=== PATIENT | male | born 1930 | race Caucasian/White ===

== ENCOUNTER 2016-03-04 07:44 | Day surgery (SDC) | payer OTHER ==
[~2016-03-04] VITALS: Ht 170.2 cm; Wt 82.5 kg
[~2016-03-04 07:44] MED LIST: ADULT LOW DOSE81 M1 PO; AMITRIPTYLINE H25 MG PO; ATORVASTATIN CA10 MG PO; ATORVASTATIN CA40 MG PO; CALCIUM 600 +1 EAC3 PO; CALCIUM 600 +1 EAC5 PO; ELAVIL25 MG PO; FENOFIBRATE145 M1 PO; GLIPIZIDE5 MG PO; ISOSORBIDE DINI30 MG PO; ISOSORBIDE MONO60 MG PO; LANTUS 3 M100 UNITS1 SC; Lopressor PO; METOPROLOL SUCC50 MG PO; MULTIVITAMIN1 EAC2 PO; NAPROSYN500 MG PO; NITROSTAT0.4 MG SL; NOVOLOG PE100 UNITS/ SC; NOVOLOG100 UNIT/1 SC; PANTOPRAZOLE SO40 MG PO; PLAVIX75 MG PO; VICTOZA 2-0.6 MG/0.1 SC
[2016-03-04 09:23] LABS: POINT-OF-CARE METER ID UU13113696
[2016-03-04 16:05] VITALS: BP 167/74
[2016-03-04 16:48] LABS: POINT-OF-CARE USER ID ENVKC36
[2016-03-04 19:35] VITALS: BP 123/70
[2016-03-04 23:10] VITALS: BP 149/65
[2016-03-05 04:45] VITALS: BP 157/70
[2016-03-05 07:15] LABS: ANION GAP 7 MEQ/L (2-14); CHLORIDE 104 MEQ/L (99-109); GFR ESTIMATE (CALCULATED) 56 mL/min/; GLUCOSE 70 mg/dL (70-99); POTASSIUM 4.3 MEQ/L (3.7-5.4); SAMPLE HEMOLYSIS CHECK 0; SAMPLE ICTERIC CHECK 0; SAMPLE LIPEMIA CHECK 0; SODIUM 137 MEQ/L (136-147); UREA NITROGEN (BUN) 12 mg/dL (9-23)
[2016-03-05 07:45] VITALS: BP 152/71
[2016-03-05 07:45] LABS: POINT-OF-CARE USER ID ENVKC36
[2016-03-05 07:49] LABS: EOSINOPHIL (%) 3.7 % (0-5); EOSINOPHIL COUNT 0.3 K/uL (0-0.3); HEMATOCRIT 41.6 % (38.0-50.0); IMMATURE GRANULOCYTE (%) 0.2 % (0.0-0.7); LYMPHOCYTE COUNT 1.3 K/uL (1.0-2.8); MCHC 33.7 G/DL (30.0-36.0); MCV 89.1 FL (86-99); MEAN PLAT.VOLUME 12.5 uM^3 (9.0-12.4); MONOCYTE (%) 7.7 % (3-12); MONOCYTE COUNT 0.6 K/uL (0-0.8); NEUTROPHIL (%) 72.5 % (45-76); NEUTROPHIL COUNT 5.8 K/uL (1.8-6.4); PLATELET COUNT 168 K/uL (156-360); RBC DIS.WIDTH-CV 14.4 % (11.8-14.6); RBC DIS.WIDTH-SD 46.7 % (39-53); RED BLOOD COUNT 4.67 M/uL (4.00-5.50)
[2016-03-05 07:50] LABS: WHITE BLOOD COUNT 8.1 K/uL (4.1-10.2)
== END 2016-03-05 12:01 | disposition home or self-care (01) ==
LOC: CATH 07:44 → 4EAST 13:05 → 2SOUTH 13:05 → 4EAST 15:57
PROVIDERS: Internal Medicine Cardiovascular Disease
DX: I25.10 Atherosclerotic heart disease of native coronary artery without angina pectoris (principal); R07.9 Chest pain, unspecified; I10 Essential (primary) hypertension; E78.5 Hyperlipidemia, unspecified; E11.9 Type 2 diabetes mellitus without complications; Z95.5 Presence of coronary angioplasty implant and graft
CPT/HCPCS: 80048; 82948; 85025; 85347; 93005; C1725; C1769; C1874; C1887; G0378; J0583; J1644; J1815; J2250; J3010; J7050

== ENCOUNTER 2016-08-10 13:53 | Emergency (ER) | payer OTHER ==
[~2016-08-10] VITALS: Ht 170.2 cm; Wt 83.6 kg
[2016-08-10 16:27] LABS: HEMATOCRIT 41.2 % (38.0-50.0); MCH 30.1 PG (29.0-34.0); MCV 91.2 FL (86-99); MEAN PLAT.VOLUME 11.9 uM^3 (9.0-12.4); PLATELET COUNT 185 K/uL (156-360); RBC DIS.WIDTH-CV 14.5 % (11.8-14.6); RBC DIS.WIDTH-SD 48.2 % (39-53); RED BLOOD COUNT 4.52 M/uL (4.00-5.50); WHITE BLOOD COUNT 7.7 K/uL (4.1-10.2)
[2016-08-10 16:38] LABS: CHLORIDE 105 mEq/L (99-109); POTASSIUM 4.3 mEq/L (3.7-5.4); SODIUM 139 mEq/L (136-147)
[2016-08-10 16:40] LABS: GLUCOSE 242 mg/dL (70-99)
[2016-08-10 16:42] LABS: ANION GAP 10 MEQ/L (2-14)
[2016-08-10 16:44] LABS: GFR ESTIMATE (CALCULATED) 44 mL/min/
[2016-08-10 16:45] LABS: UREA NITROGEN (BUN) 18 mg/dL (9-23)
[2016-08-10 19:43] VITALS: BP 167/79
== END 2016-08-10 19:45 | disposition home or self-care (01) ==
LOC: EME 13:53
PROVIDERS: Emergency Medicine
DX: S20.211A Contusion of right front wall of thorax, initial encounter (principal); X50.0XXA Overexertion from strenuous movement or load, initial encounter; R07.89 Other chest pain; I48.91 Unspecified atrial fibrillation; I10 Essential (primary) hypertension; I25.10 Atherosclerotic heart disease of native coronary artery without angina pectoris; Z95.5 Presence of coronary angioplasty implant and graft; E11.9 Type 2 diabetes mellitus without complications; Z79.4 Long term (current) use of insulin; E78.5 Hyperlipidemia, unspecified; K21.9 Gastro-esophageal reflux disease without esophagitis; Z79.02 Long term (current) use of antithrombotics/antiplatelets; Z79.82 Long term (current) use of aspirin
CPT/HCPCS: 71020; 80048; 85027; 93005; 99281; 99285; J1885

== ENCOUNTER 2016-08-14 16:32 | Emergency (ER) | payer OTHER ==
[~2016-08-14] VITALS: Ht 167.6 cm; Wt 83.6 kg
[2016-08-14 17:11] LABS: HEMATOCRIT 41.2 % (38.0-50.0); MCH 29.7 PG (29.0-34.0); MCHC 32.8 G/DL (30.0-36.0); MCV 90.7 FL (86-99); MEAN PLAT.VOLUME 11.3 uM^3 (9.0-12.4); PLATELET COUNT 193 K/uL (156-360); RBC DIS.WIDTH-CV 14.2 % (11.8-14.6); RBC DIS.WIDTH-SD 47.8 % (39-53); RED BLOOD COUNT 4.54 M/uL (4.00-5.50); WHITE BLOOD COUNT 6.5 K/uL (4.1-10.2)
[2016-08-14] MEDS ORDERED: ISOSORBIDE DINIT5 MG PO (17:25)
[2016-08-14] MEDS ORDERED: METOPROLOL TART50 MG PO (17:26)
[2016-08-14] MEDS ORDERED: LANTUS 10100 UNITS/ SC (17:26)
[2016-08-14 17:44] LABS: CHLORIDE 107 mEq/L (99-109); POTASSIUM 4.4 mEq/L (3.7-5.4); SODIUM 143 mEq/L (136-147)
[2016-08-14 17:46] LABS: GLUCOSE 141 mg/dL (70-99)
[2016-08-14 17:47] LABS: ANION GAP 10 MEQ/L (2-14)
[2016-08-14 17:48] LABS: TOTAL BILIRUBIN 0.7 mg/dL (0.0-1.0)
[2016-08-14 17:50] LABS: ALKALINE PHOSPHATASE 35 IU/L (3-129); GFR ESTIMATE (CALCULATED) 47 mL/min/
[2016-08-14 17:51] LABS: UREA NITROGEN (BUN) 21 mg/dL (9-23)
[2016-08-14 18:54] LABS: TROP-I INTERPRETATION NEGATIVE; TROPONIN-I < 0.01 ng/mL (0.0-0.30)
[2016-08-14 20:25] LABS: ADD MIUA? NO; BILIRUBIN NEGATIVE; BLOOD NEGATIVE; COLOR YELLOW ((YELLOW)); GLUCOSE (STRIP) 50; KETONES NEGATIVE; LEUKOCYTES NEGATIVE; NITRITE NEGATIVE; PROTEIN (STRIP) NEGATIVE; UCUL ADDED? NO
[2016-08-14] MEDS ORDERED: ZOFRAN ODT4 MG PO (20:45)
[2016-08-14 21:50] VITALS: BP 136/74
== END 2016-08-14 21:50 | disposition home or self-care (01) ==
LOC: EME 16:32
PROC: 0T9B70Z Drainage of Bladder with Drainage Device, Via Natural or Artificial Opening (ICD-10-PCS; principal; 2016-08-14)
DX: R11.2 Nausea with vomiting, unspecified (principal); R42 Dizziness and giddiness; R51 Headache; R33.9 Retention of urine, unspecified; R07.89 Other chest pain; E78.5 Hyperlipidemia, unspecified; E11.9 Type 2 diabetes mellitus without complications; Z79.4 Long term (current) use of insulin; I44.0 Atrioventricular block, first degree; I48.91 Unspecified atrial fibrillation; K21.9 Gastro-esophageal reflux disease without esophagitis; I10 Essential (primary) hypertension; Z95.5 Presence of coronary angioplasty implant and graft; Z79.02 Long term (current) use of antithrombotics/antiplatelets; Z79.82 Long term (current) use of aspirin
CPT/HCPCS: 70450; 71260; 74177; 80053; 81003; 84484; 85027; 93005; 99281; 99285; J2405; J7030

== ENCOUNTER 2017-05-04 17:47 | Inpatient (IN) | payer OTHER ==
[~2017-05-04] VITALS: Ht 172.7 cm; Wt 83.5 kg
[~2017-05-04 17:47] MED LIST changes: +IMDUR60 MG PO; +LANTUS 10100 UNITS/ SC; +TOPROL XL50 MG PO; +ZOFRAN ODT4 MG PO
[2017-05-04 19:06] LABS: BASOPHIL (%) 0.3 % (0-1); EOSINOPHIL (%) 0.2 % (0-5); HEMOGLOBIN 13.2 G/DL (12.5-16.6); IMMATURE GRANULOCYTE (%) 0.5 % (0.0-0.7); LYMPHOCYTE (%) 2.8 % (15-42); LYMPHOCYTE COUNT 0.3 K/uL (1.0-2.8); MCHC 33.8 G/DL (30.0-36.0); MCV 88.6 FL (86-99); MONOCYTE (%) 2.9 % (3-12); MONOCYTE COUNT 0.4 K/uL (0-0.8); NEUTROPHIL (%) 93.3 % (45-76); NEUTROPHIL COUNT 11.4 K/uL (1.8-6.4); PLATELET COUNT 151 K/uL (156-360); RBC DIS.WIDTH-SD 45.2 % (39-53); WHITE BLOOD COUNT 12.2 K/uL (4.1-10.2)
[2017-05-04 19:16] LABS: ALBUMIN 4.3 g/dL (3.2-4.8); CHLORIDE 106 mEq/L (99-109); POTASSIUM 3.8 mEq/L (3.7-5.4); SODIUM 140 mEq/L (136-147)
[2017-05-04 19:18] LABS: GLUCOSE 116 mg/dL (70-99); TOTAL PROTEIN 6.7 g/dL (6.4-8.3)
[2017-05-04 19:22] LABS: ALKALINE PHOSPHATASE 43 IU/L (3-129); CREATININE 1.5 mg/dL (0.6-1.3); GFR ESTIMATE (CALCULATED) 47 mL/min/ (58.99-99999)
[2017-05-04 19:23] LABS: UREA NITROGEN (BUN) 17 mg/dL (9-23)
[2017-05-04 19:24] LABS: AST (GOT) 27 IU/L (2-34)
[2017-05-04 19:25] LABS: ALT (GPT) 22 IU/L (3-49); LIPASE 24 U/L (1.0-51.0)
[2017-05-04 19:26] LABS: TROP-I INTERPRETATION NEGATIVE; TROPONIN-I 0.06 ng/mL (0.0-0.30)
[2017-05-04 19:33] LABS: APPEARANCE CLEAR ((CLEAR)); BILIRUBIN NEGATIVE; BLOOD SMALL; COLOR YELLOW ((YELLOW)); GLUCOSE (STRIP) 50; KETONES NEGATIVE; LEUKOCYTES NEGATIVE; NITRITE NEGATIVE; PROTEIN (STRIP) NEGATIVE; SPECIFIC GRAVITY 1.013 (1.000-1.030); UROBILINOGEN 0.2 MG/DL (0.2-1.0)
[2017-05-04 19:37] LABS: BACTERIA NONE SEEN /HPF; EPITHELIAL CELLS NONE SEEN /HPF; HYALINE CASTS 0-5 /LPF; MUCUS TRACE /LPF; RED BLOOD CELLS 0-5 /HPF (0-5); UCUL ADDED? NO; WHITE BLOOD CELLS 0-5 /HPF (0-5)
[2017-05-04 20:50] LABS: INTER. NORMALIZED RATIO 1.3
[2017-05-04 21:06] LABS: TROP-I INTERPRETATION NEGATIVE; TROPONIN-I 0.08 ng/mL (0.0-0.30)
[2017-05-04] MEDS ORDERED: TRESIBA FL100 UNIT/1 SC (22:15)
[2017-05-04] MEDS ORDERED: SYNTHROID50 MCG PO (22:17)
[2017-05-04 23:44] LABS: HDL CHOLESTEROL 23 MG/DL (Desirable>=40); LDL CHOLESTEROL 63 mg/dL (Desirable<100); NON-HDL CHOLESTEROL 93 mg/dL (Desirable<160); TOTAL CHOLESTEROL 116 mg/dL (Desirable<200); TRIGLYCERIDES 150 MG/DL (Normal: <150)
[2017-05-05 00:02] VITALS: BP 111/54
[2017-05-05 03:36] VITALS: BP 111/53
[2017-05-05 08:26] VITALS: BP 144/65
[2017-05-05 08:51] LABS: HEMATOCRIT 34.9 % (38.0-50.0); HEMOGLOBIN 11.5 G/DL (12.5-16.6); MCH 29.7 PG (29.0-34.0); MCV 90.2 FL (86-99); PLATELET COUNT 137 K/uL (156-360); RBC DIS.WIDTH-CV 14.5 % (11.8-14.6); RBC DIS.WIDTH-SD 47.9 % (39-53); RED BLOOD COUNT 3.87 M/uL (4.00-5.50); WHITE BLOOD COUNT 9.2 K/uL (4.1-10.2)
[2017-05-05 09:25] LABS: ALBUMIN 3.7 G/DL (3.2-4.8); ALKALINE PHOSPHATASE 29 IU/L (3-129); ALT (GPT) 16 IU/L (3-49); AST (GOT) 28 IU/L (2-34); CHLORIDE 109 MEQ/L (99-109); CREATININE 1.4 MG/DL (0.6-1.3); GFR ESTIMATE (CALCULATED) 51 mL/min/ (58.99-99999); GLUCOSE 108 mg/dL (70-99); SODIUM 141 MEQ/L (136-147); TOTAL BILIRUBIN 0.9 MG/DL (0.0-1.0); TOTAL PROTEIN 5.5 G/DL (6.4-8.3); UREA NITROGEN (BUN) 16 mg/dL (9-23)
[2017-05-05 11:35] VITALS: BP 111/57
[2017-05-05 12:59] LABS: HEMOGLOBIN A1c (GLYCOHEMOGLOB) 7.4 % (Below 5.7)
[2017-05-05 16:20] VITALS: BP 108/51
[2017-05-06 00:14] VITALS: BP 152/62
[2017-05-06 04:24] VITALS: BP 169/72
[2017-05-06 09:16] VITALS: BP 148/66
[2017-05-06 11:56] VITALS: BP 151/72
[2017-05-06 16:08] VITALS: BP 137/87
[2017-05-06 19:50] VITALS: BP 146/70
[2017-05-07 00:38] VITALS: BP 161/70
[2017-05-07 05:18] VITALS: BP 152/65
[2017-05-07 11:21] VITALS: BP 148/70
[2017-05-07 16:29] VITALS: BP 137/78
[2017-05-07 19:50] VITALS: BP 129/73
[2017-05-08 00:10] VITALS: BP 134/62
[2017-05-08 05:03] VITALS: BP 137/61
[2017-05-08 07:32] VITALS: BP 137/60
[2017-05-08] MEDS ORDERED: AUGMENTIN875 MG PO (09:41)
[2017-05-08 10:53] VITALS: BP 138/65
== END 2017-05-08 13:15 | disposition home or self-care (01) | DRG 71 ==
LOC: EME 17:47 → EDOF 22:19 → 5WEST 22:19 → ENRESERV 22:21 → 5WEST 23:26 → ENPENDDIS 05-08 → 5WEST 05-08 13:15
PROVIDERS: Emergency Medicine; Hospitalist
DX: G93.41 Metabolic encephalopathy (principal); R78.81 Bacteremia; B95.4 Other streptococcus as the cause of diseases classified elsewhere; R41.82 Altered mental status, unspecified; I10 Essential (primary) hypertension; I25.10 Atherosclerotic heart disease of native coronary artery without angina pectoris; G47.33 Obstructive sleep apnea (adult) (pediatric); E66.9 Obesity, unspecified; Z68.27 Body mass index [BMI] 27.0-27.9, adult; N13.2 Hydronephrosis with renal and ureteral calculous obstruction; E78.5 Hyperlipidemia, unspecified; I44.0 Atrioventricular block, first degree; N40.0 Benign prostatic hyperplasia without lower urinary tract symptoms; R32 Unspecified urinary incontinence; Z66 Do not resuscitate; Z95.5 Presence of coronary angioplasty implant and graft
CPT/HCPCS: 70450; 71046; 74177; 80053; 80061; 81003; 82948; 83036; 83605; 83690; 84484; 85025; 85027; 85610; 87040; 87801; 93005; 93306; 93880; 95819; 97530 GO; 99281; 99285; G0378; G8978 GP CI; G8979 GP CH; G8987 GO CI; G8988 GO CH; J0295; J0696; J1644; J1815; J1956; J2405; J7030; J7050